=== PATIENT | female | born 1950 | race Caucasian/White ===

== ENCOUNTER → 2017-01-05 | Outpatient (CLI) | payer OTHER, MEDICARE | LOC: BHFA 09:15 | PROVIDERS: ATTEND Internal Medicine Cardiovascular Disease | DX: I34.0 Nonrheumatic mitral (valve) insufficiency (principal) ==

== ENCOUNTER → 2017-06-16 | Outpatient (CLI) | payer OTHER, MEDICARE | LOC: FIMAGING 09:28 | PROVIDERS: ATTEND Nurse Practitioner Adult Health | DX: M85.611 Other cyst of bone, right shoulder (principal); R91.1 Solitary pulmonary nodule ==

== ENCOUNTER → 2017-07-06 | Outpatient (CLI) | payer OTHER, MEDICARE | LOC: BHFA 08:30 | PROVIDERS: ATTEND Internal Medicine Cardiovascular Disease | DX: R07.9 Chest pain, unspecified (principal); E78.5 Hyperlipidemia, unspecified ==

== ENCOUNTER → 2017-10-17 | Outpatient (CLI) | payer OTHER, MEDICARE | LOC: FIMAGING 10:16 | PROVIDERS: ATTEND Obstetrics & Gynecology | DX: Z12.31 Encounter for screening mammogram for malignant neoplasm of breast (principal) | CPT/HCPCS: G0202 ==

== ENCOUNTER 2018-02-22 20:07 | Inpatient (IN) | payer OTHER, MEDICARE ==
[2018-02-22] MEDS ORDERED: NS 1,000 ML IV ONE (21:01)
--- NOTE | 2018-02-22 21:06 | EDPHY ---
H & P Time Seen by Provider: 02/22/18 20:43 HPI/ROS: CHIEF COMPLAINT: Abdominal pain HISTORY OF PRESENT ILLNESS: The patient is a 67-year-old female with a history of Crohn's disease. The patient states"I am having a Crohn's flare."She states she has a flare approximately once a year. She becomes distended has significant pain. She states his pinpoint and severe. It is mid abdomen. She reports that Dr. Castillo tells her that she should come into the emergency department to get evaluation. She typically requires a scan. The patient denies any diarrhea. No nausea or vomiting. No fevers or chills. REVIEW OF SYSTEMS: My complete review of systems is negative except as mentioned in the HPI. Past Medical/Surgical History: Includes Crohn's disease, kidney stone, sleep apnea Past surgical history: Includes bowel resection, tonsillectomy Social history: The patient does not smoke Smoking Status: Never smoked Physical Exam: Vitals noted. Afebrile GENERAL: Well-appearing, in no acute distress, alert. HEENT: Eyes normal to inspection, normal pharynx, no signs of dehydration. NECK: No thyromegaly, supple. RESPIRATORY: Clear to auscultation bilaterally, no rales, rhonchi or wheezing. CVS: Regular rate and rhythm, no rubs, murmurs, or gallops. ABDOMEN: Soft, mild diffuse tenderness to palpation with no rebound or guarding. Mild distention. BACK: Normal to inspection, no CVA tenderness. SKIN: Normal color, no rash, warm, dry. No pallor. EXTREMITIES: No pedal edema, no calf tenderness, no Homans sign or cords, no joint swelling. NEURO/PSYCH: Alert and oriented, normal mood and affect, normal motor sensory exam. Constitutional: Initial Vital Signs Temperature (C) 36.9 C 02/22/18 20:14 Heart Rate 77 02/22/18 20:14 Respiratory Rate 18 02/22/18 20:14 Blood Pressure 168/60 H 02/22/18 20:14 O2 Sat (%) 96 02/22/18 20:14 O2 Delivery Mode Room Air O2 (L/minute) 2 Allergies/Adverse Reactions: No Known Allergies Allergy (Verified 02/21/15 18:20) Home Medications: Medication Instructions Recorded Humira 40 02/22/18 Medical Decision Making - Diagnostics Imaging Results: Imaging Impressions Abdomen CT 02/22/18 21:03 Impression: 1. Severe acute segmental inflammatory enteritis of distal ileum. No discrete perforation or abscess. 2. Narrowing of the inflamed segment causes low-grade mechanical obstruction. 3. Sigmoid diverticulosis. Findings were communicated in person with Dr. GREG REYEZ at 02/22/2018 22 :27 ED Course/Re-evaluation: In the emergency department I discussed possible etiologies with the patient. I answered all her questions. IV was placed. Patient requests morphine. Morphine 4 mg IV and Zofran 4 mg IV were given for pain and nausea. The patient was given normal saline 1 L IV for hydration. Laboratory studies and CT scan were ordered. [place] [address]. The chemistry panel is unremarkable. LFTs and lipase are normal. Abdominal pelvis CT: Please refer the dictated report. The patient has a distal ileum enteritis. There is an ileus. I discussed the results with the patient. I answered all her questions. I discussed the case with the on-call surgeon, Dr. Navarro. I discussed the case with Dr. Gan. He will admit the patient for further care. Discussed case with Dr. Al Coffey. He recommended Solu-Medrol 125 mg IV now. He then recommended Solu-Medrol 30 mg IV Q 12 hr. I discussed this with Dr.De Lozada. Differential Diagnosis: My differential includes but is not limited to small-bowel obstruction, perforation, Crohn's flare, diverticulitis, diverticulosis, diverticular abscess , pancreatitis, cholecystitis, studies - Data Points Laboratory Results: Laboratory Results 02/22/18 20:50 02/22/18 20:50 02/22/18 02/22/18 20:50 20:50 WBC 14.83 10^3/uL H 10^3/uL (3.80-9.50) RBC 4.80 10^6/uL 10^6/uL (4.18-5.33) Hgb 15.7 g/dL g/dL (12.6-16.3) Hct 45.3 % % (38.0-47.0) MCV 94.4 fL fL (81.5-99.8) MCH 32.7 pg pg (27.9-34.1) MCHC 34.7 g/dL g/dL (32.4-36.7) RDW 11.9 % % (11.5-15.2) Plt Count 194 10^3/uL 10^3/uL (150-400) MPV 9.6 fL fL (8.7-11.7) Neut % (Auto) 73.2 % % (39.3-74.2) Lymph % (Auto) 18.1 % % (15.0-45.0) [place] % (Auto) 7.8 % % (4.5-13.0) Eos % (Auto) 0.3 % L % (0.6-7.6) Baso % (Auto) 0.2 % L % (0.3-1.7) Nucleat RBC Rel Count 0.0 % % (0.0-0.2) Absolute Neuts (auto) 10.86 10^3/uL H 10^3/uL (1.70-6.50) Absolute Lymphs (auto) 2.69 10^3/uL 10^3/uL (1.00-3.00) Absolute Monos (auto) 1.15 10^3/uL H 10^3/uL (0.30-0.80) Absolute Eos (auto) 0.04 10^3/uL 10^3/uL (0.03-0.40) Absolute Basos (auto) 0.03 10^3/uL 10^3/uL (0.02-0.10) Absolute Nucleated RBC 0.00 10^3/uL 10^3/uL (0-0.01) Immature Gran % 0.4 % % (0.0-1.1) Immature Gran # 0.06 10^3/uL 10^3/uL (0.00-0.10) Sodium 136 mEq/L mEq/L (135-145) Potassium 3.7 mEq/L mEq/L (3.5-5.2) Chloride 100 mEq/L mEq/L (97-110) Carbon Dioxide 25 mEq/l mEq/l (22-31) Anion Gap 11 mEq/L mEq/L (8-16) BUN 14 mg/dL mg/dL (7-23) Creatinine 0.7 mg/dL mg/dL (0.6-1.0) Estimated GFR > 60 Glucose 101 mg/dL H mg/dL (70-100) Calcium 9.4 mg/dL mg/dL (8.5-10.4) Total Bilirubin 1.2 mg/dL mg/dL (0.1-1.4) Conjugated Bilirubin 0.4 mg/dL mg/dL (0.0-0.5) Unconjugated Bilirubin 0.8 mg/dL mg/dL (0.0-1.1) AST 26 IU/L IU/L (14-46) ALT 44 IU/L IU/L (9-52) Alkaline Phosphatase 49 IU/L IU/L (38-126) Total Protein 7.2 g/dL g/dL (6.3-8.2) Albumin 4.3 g/dL g/dL (3.5-5.0) Lipase 146 IU/L IU/L (23-300) Medications Given: Discontinued Medications Sodium Chloride (Ns) 1,000 mls @ 0 mls/hr IV EDNOW ONE; Wide Open PRN Reason: Protocol Stop: 02/22/18 21:02 Last Admin: 02/22/18 21:08 Dose: 1,000 mls Morphine Sulfate (Morphine) 4 mg IVP EDNOW ONE Stop: 02/22/18 21:02 Last Admin: 02/22/18 21:07 Dose: 4 mg Departure - Departure Disposition: [facility] Inpatient Acute Clinical Impression: Ileus Abdominal pain Qualifiers: Abdominal location: generalized Qualified Code(s): R10.84 - Generalized abdominal pain Condition: Good Instructions: Acute Abdominal Pain (ED) Referrals: Kade Castillo MD [Medical Doctor] - 2-3 days without fail
[2018-02-22 21:17] LABS: PLATELET COUNT 194 10^3/uL (150-400)
[2018-02-22] MEDS ORDERED: IOPAMIDOL (ISOVUE-300) 100 ML BTL ONE (21:28)
[2018-02-22] MEDS ORDERED: NS 1,000 ML IV SCH (22:30)
[2018-02-22] MEDS ORDERED: ONDANSETRON DISINTEGRATING 4 MG TAB PO PRN (22:30)
[2018-02-22] MEDS ORDERED: ACETAMINOPHEN 325 MG TAB PO PRN (22:30)
[2018-02-22] MEDS ORDERED: ONDANSETRON 4 MG/2 ML VIAL IVP PRN (22:30)
[2018-02-22] MEDS ORDERED: methylPREDNISolone SOD SUCC 125 MG/2 ML VIAL IVP ONE (22:39)
--- NOTE | 2018-02-22 23:14 | PDGENHP ---
History and Physical - Chief Complaint Abdominal pain - History of Present Illness 67 yo F w/ Crohn's presents w/ abdominal pain. Patient has had lower abdominal pain for about 1 day. Pain developed after eating. She had two small BM's this morning but no BM or gas since; also no BRBPR. Pain is currently improved after morphine received in the ED. She is healthy otherwise and her only home mediction is Humira. Her Chron's is well controlled usually as her last hospitalization for a flare was over 10 years ago. She has no family hx of IBD. History Information - Allergies/Home Medication List Allergies/Adverse Reactions: No Known Allergies Allergy (Verified 02/21/15 18:20) Home Medications: Humira 40 02/22/18 [Last Taken Unknown] I have personally reviewed and updated: family history, medical history - Past Medical History Crohn's Disease - Surgical History Additional surgical history: Bowel surgery - Family History Additional family history: Denies family hx of IBD - Social History Smoking Status: Never smoked Review of Systems Review of Systems: ROS: 10pt was reviewed & negative except for what was stated in HPI & below Physical Exam Physical Exam: Temp Pulse Resp BP Pulse Ox 36.7 C 68 16 145/64 H 97 02/22/18 22:00 02/22/18 22:00 02/22/18 22:00 02/22/18 22:00 02/22/18 22:00 Constitutional: no apparent distress, not in pain Eyes: PERRL, EOMI Ears, Nose, Mouth, Throat: moist mucous membranes, no oral mucosal ulcers Cardiovascular: regular rate and rhythym, no murmur, rub, or gallop Respiratory: no respiratory distress, clear to auscultation Gastrointestinal: normoactive bowel sounds, tenderness (Lower abdomen), distension, No guarding, No rebound Skin: warm, normal color Musculoskeletal: full muscle strength, no muscle tenderness Neurologic: AAOx3, CN II-XII Intact Psychiatric: interacting appropriately, not anxious Lab Data & Imaging Review 02/22/18 20:50 02/22/18 20:50 WBC 14.83 10^3/uL (3.80-9.50) H 02/22/18 20:50 RBC 4.80 10^6/uL (4.18-5.33) 02/22/18 20:50 Hgb 15.7 g/dL (12.6-16.3) 02/22/18 20:50 Hct 45.3 % (38.0-47.0) 02/22/18 20:50 MCV 94.4 fL (81.5-99.8) 02/22/18 20:50 MCH 32.7 pg (27.9-34.1) 02/22/18 20:50 MCHC 34.7 g/dL (32.4-36.7) 02/22/18 20:50 RDW 11.9 % (11.5-15.2) 02/22/18 20:50 Plt Count 194 10^3/uL (150-400) 02/22/18 20:50 MPV 9.6 fL (8.7-11.7) 02/22/18 20:50 Neut % (Auto) 73.2 % (39.3-74.2) 02/22/18 20:50 Lymph % (Auto) 18.1 % (15.0-45.0) 02/22/18 20:50 [place] % (Auto) 7.8 % (4.5-13.0) 02/22/18 20:50 Eos % (Auto) 0.3 % (0.6-7.6) L 02/22/18 20:50 Baso % (Auto) 0.2 % (0.3-1.7) L 02/22/18 20:50 Nucleat RBC Rel Count 0.0 % (0.0-0.2) 02/22/18 20:50 Absolute Neuts (auto) 10.86 10^3/uL (1.70-6.50) H 02/22/18 20:50 Absolute Lymphs (auto) 2.69 10^3/uL (1.00-3.00) 02/22/18 20:50 Absolute Monos (auto) 1.15 10^3/uL (0.30-0.80) H 02/22/18 20:50 Absolute Eos (auto) 0.04 10^3/uL (0.03-0.40) 02/22/18 20:50 Absolute Basos (auto) 0.03 10^3/uL (0.02-0.10) 02/22/18 20:50 Absolute Nucleated RBC 0.00 10^3/uL (0-0.01) 02/22/18 20:50 Immature Gran % 0.4 % (0.0-1.1) 02/22/18 20:50 Immature Gran # 0.06 10^3/uL (0.00-0.10) 02/22/18 20:50 Sodium 136 mEq/L (135-145) 02/22/18 20:50 Potassium 3.7 mEq/L (3.5-5.2) 02/22/18 20:50 Chloride 100 mEq/L (97-110) 02/22/18 20:50 Carbon Dioxide 25 mEq/l (22-31) 02/22/18 20:50 Anion Gap 11 mEq/L (8-16) 02/22/18 20:50 BUN 14 mg/dL (7-23) 02/22/18 20:50 Creatinine 0.7 mg/dL (0.6-1.0) 02/22/18 20:50 Estimated GFR > 60 02/22/18 20:50 Glucose 101 mg/dL (70-100) H 02/22/18 20:50 Calcium 9.4 mg/dL (8.5-10.4) 02/22/18 20:50 Total Bilirubin 1.2 mg/dL (0.1-1.4) 02/22/18 20:50 Conjugated Bilirubin 0.4 mg/dL (0.0-0.5) 02/22/18 20:50 Unconjugated Bilirubin 0.8 mg/dL (0.0-1.1) 02/22/18 20:50 AST 26 IU/L (14-46) 02/22/18 20:50 ALT 44 IU/L (9-52) 02/22/18 20:50 Alkaline Phosphatase 49 IU/L (38-126) 02/22/18 20:50 Total Protein 7.2 g/dL (6.3-8.2) 02/22/18 20:50 Albumin 4.3 g/dL (3.5-5.0) 02/22/18 20:50 Lipase 146 IU/L (23-300) 02/22/18 20:50 Imaging Review: Imaging Impressions Abdomen CT 02/22/18 21:03 Impression: 1. Severe acute segmental inflammatory enteritis of distal ileum. No discrete perforation or abscess. 2. Narrowing of the inflamed segment causes low-grade mechanical obstruction. 3. Sigmoid diverticulosis. Findings were communicated in person with Dr. GREG REYEZ at 02/22/2018 22 :27 Assessment & Plan Assessment: 67 yo F presents w/ Crohn's flare. Plan: 1. Crohn's disease w/ acute flare - CT scan showing inflammation of distal ileum with stricture causing mild mechanical obstruction. - GI consulted, recommending IV steroids - NPO, mIVF, pain control Diet - NPO Code - Full Ppx - SCDs Dispo - Admit under observation status
[2018-02-23] MEDS: oxyCODONE IR 5 MG TAB PO PRN ×2 (00:24→01:14)
[2018-02-23 04:59] LABS: PLATELET COUNT 198 10^3/uL (150-400)
--- NOTE | 2018-02-23 06:15 | PDCONSULT ---
Rail Layer Note: #[id number] Surgical Consult Dictated S MD Melanie, FACS
--- NOTE | 2018-02-23 07:03 | GCON ---
[f rep st] CONSULTATION SURGICAL CONSULTATION DATE OF CONSULTATION: 02/23/2018 CHIEF COMPLAINT: Abdominal pain. HISTORY OF PRESENT ILLNESS: The patient is a 67-year-old female with a 35 year history of Crohn's disease, 1st diagnosed when she was and required emergency and resection of terminal ileum and portion of colon ( Doctors Corie and Emma). Subsequently, the patient had minimal progression of her disease over the years and has not required any additional bowel surgery. I repaired an abdominal wall hernia on her 15 years ago in combination with an abdominoplasty by . The patient has been on Humira for the past 8 months under the direction of Dr. Ezequiel Castillo and has had a known stricture near her anastomosis for at least the past 15 years, requiring intermittent hospitalization for partial obstruction. Her last Humira dose was 1 week ago. Before coming to the hospital yesterday, patient ate several coconut/nut concoctions that were quite fibrous and she feels this may have been the inciting factor in her most recent partial obstruction. The patient came to the emergency room, was seen by Dr. Somers and was admitted to the hospitalist service. She had 1 episode of emesis yesterday. PAST MEDICAL HISTORY: Significant for previous mentioned small bowel resection in combination with 1982, subsequent abdominal hernia repair and abdominoplasty in 1997. CURRENT MEDICATIONS: Include Humira (dose unknown, presumed 5 mg/kg every other week). ALLERGIES: She has no known drug allergies. HABITS: She does not smoke. Denies significant alcohol use. SOCIAL HISTORY: Patient is . She and her travel frequently. She exercises 5 days a week and eats a healthy diet. She has had a colonoscopy within the past year and colonoscopic dilatation of her stricture in the past. FAMILY HISTORY: Noncontributory. PHYSICAL EXAMINATION: VITAL SIGNS: Blood pressure 141/69, heart rate is 68, respiratory rate 16, O2 saturation is 95% on 2 L, temperature is 36.9. GENERAL : Patient is a pleasant, articulate woman appearing younger than her stated age. HEENT EXAM: No scleral icterus. No adenopathy. ABDOMEN: Soft, protuberant, tympanitic with hypoactive bowel sounds. There is a well-healed low abdominal incision transversely oriented without palpable hernias. There is no palpable mass, but there is fullness in the right lower quadrant. She has diffuse mild tenderness without guarding, rebound. CT scan shows a narrowing in the distal small bowel with proximal fecalization. Moderate amount of stool in the colon. No free air. No significant varghese- intestinal inflammatory change or fluid. There does appear to be edema in the wall of the bowel at the level of the stricture. LABORATORY STUDIES: WBC was 14.8 on admission, is 13.2 this morning. Hemoglobin 16, hematocrit 46.2, platelets 198. Sodium was 139, potassium 4.3, chloride 104, bicarb 26, BUN 12, creatinine 0.7, glucose 140. IMPRESSION: 1. 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 2. History of abdominal wall hernia repaired with mesh in combination with abdominoplasty. RECOMMENDATIONS: Discussed the findings with the patient and recommended conservative management and start her on a clear liquid diet, advising her to avoid food, carbonated beverages, and progressed to a low residue diet. If the patient continues to have symptoms of her stricture, strictureplasty may be indicated. I would recommend holding Humira for 2-4 weeks prior to surgery ideally for optimal risk reduction perioperatively. /[id number]/MODL MTDD
[2018-02-23] MEDS ORDERED: D5W 1/2 NS W/ 20 KCl/L 1,000 ML IV SCH (08:45)
--- NOTE | 2018-02-23 08:47 | SOAPPROG ---
GIRMA Progress Note Assessment/Plan: Assessment/Plan: Chart reviewed, pt. not seen yet, formal note to follow. Crohn's ileitis flare , with secondary obstructive symptoms. She does have a past history of an anastomotic stricture, dilated in 2017, but with the CT findings, doubt playing a role. - she received a 125 mg bolus of solumedrol IVP x 1; will start 30 mg q12 - clears Thanks! 02/23/18 08:44 Objective: Vital Signs Temp Pulse Resp BP Pulse Ox 36.6 C 68 18 123/82 H 94 02/23/18 07:18 02/23/18 07:18 02/23/18 07:18 02/23/18 07:18 02/23/18 07:18 Laboratory Results 02/23/18 04:15 02/23/18 04:15 02/22/18 02/23/18 02/24/18 05:59 05:59 05:59 Intake Total 1000 Balance 1000 ICD10 Worksheet Patient Problems: Problems Problem Status Onset Abdominal pain Acute Ileus Acute
[2018-02-23] MEDS ORDERED: CARBOXYMETHYLCELLULOSE 1% 0.4 ML DROPERETTE EACHEYE PRN (09:21)
[2018-02-23] MEDS: methylPREDNISolone SOD SUCC 40 MG/ML VIAL IVP SCH ×2 (09:34→21:20)
[2018-02-23] MEDS: CHOLECALCIFEROL VIT D3 1,000 UNITS TAB PO SCH (11:43)
[2018-02-23] MEDS: CYANO/VITAMIN B12 1000 MCG TAB PO SCH (11:44)
[2018-02-23] MEDS: MULTIVITAMINS 1 EACH TAB PO SCH (11:44)
[2018-02-23] MEDS: OMEGA-3 FATTY ACIDS 1,000 MG CAP PO SCH (11:44)
--- NOTE | 2018-02-23 12:34 | GCON ---
[f rep st] CONSULTATION DATE OF CONSULTATION: 02/23/2018 REASON FOR CONSULTATION: I was kindly requested to see Lucila by Dr. Vidal Gan in consultation for a chief complaint of obstructive symptoms. HISTORY OF PRESENT ILLNESS: She is a 67-year-old white female with a long history of Crohn's ileitis. Until recently, she has been doing quite well. Yesterday, prior to a hike, she ate a fair amount of an organic nut cluster product. She developed generalized abdominal pain with distention, nausea, and inability to pass gas and presented to the hospital. She is status post ileal resection for her Crohn's in the past, including some of her cecum, and has an ileocolonic anastomosis. In the past, she was on azathioprine 150 mg daily. She believes this helped, but it was stopped after she had some endoscopic disease present. While on the above dose, she did not have a 6-thioguanine level. A past TPMT phenotype was normal. She was switched to Humira 40 mg every other week. With this, she states she was doing quite well until the above. She is followed by my partner, Dr. Kade Castillo, and was last seen in the office in November of this year. In June of last year, he performed a colonoscopy, where she received 100 mcg of fentanyl and 6 mg of Versed. She did have what was described as a moderate stricture at her ileocolonic anastomosis, which was dilated with a 15 mm balloon. There was some mild ileal inflammation. PAST MEDICAL HISTORY: 1. As above. 2. Past pulmonary nodules, evaluated by [facility]. 3. Abdominal wall hernia repair with mesh. 4. Past imaging, which showed asymptomatic gallstones. 5. Otherwise noncontributory. ALLERGIES: No known drug allergies. OUTPATIENT MEDICATIONS: The above and B12. INPATIENT MEDICATIONS: IV fluids and 1 dose of Solu-Medrol 125 mg IV push when in the emergency department. SOCIAL HISTORY: She is and her 's name is Yasmany. FAMILY HISTORY: Negative for similar abdominal symptoms. REVIEW OF SYSTEMS: Positive pertinent review of systems as per my HPI. Otherwise, a complete review of systems is negative. PHYSICAL EXAM: CONSTITUTIONAL: Nontoxic-appearing and pleasant woman. SKIN: Warm and dry. EYES: Pupils are equal, round, and reactive to light and accommodation. ENT: Oropharynx is without masses and moist mucosa. CARDIOVASCULAR: Normal S2 and normal PMI. RESPIRATORY: Lungs are clear to auscultation and percussion anteriorly. GASTROINTESTINAL: Abdomen is nontender. It is moderately distended, tympanitic, and with inactive bowel sounds. NEUROLOGIC: Grossly nonfocal. Cranial nerves are grossly intact. PSYCHIATRIC: Orientation and insight are appropriate. MUSCULOSKELETAL: Strength is grossly normal throughout with normal station. LABORATORY DATA: White count is 13.2000 with a normal hematocrit. Normal CMP. Normal lipase. Calprotectin level in January was normal. CRP was elevated in 2007 and a January of 2018 CRP was normal. TB testing is negative. IMAGING: Abdominal and pelvic CT scan with IV contrast shows a 5 cm stretch of ileum that appears inflamed and strictured with some upstream dilation. ASSESSMENT: 1. Small bowel obstructive symptoms, suspect due to the Crohn's stricture found on imaging. In turn, I suspect that this is mostly inflammatory, based on its appearance. In this regard, it should hopefully resolve with medical therapy. After 1 dose of Solu-Medrol, she is already a little better, in terms of no further pain. Another possibility could be a return of her more "cold" ileocolonic anastomotic stricture, causing more of a mechanical obstruction. Based on the CT scan, however, this is somewhat less likely. 2. Crohn's ileitis. See above. PLAN: 1. Solu-Medrol 30 mg IV piggyback every 12 hours. 2. Continue IV fluids. 3. Gentle clears. 4. I suspect she will improve with the above; however, if she continues to show obstructive symptoms, despite IV Solu-Medrol, we might then at some point have to pursue colonoscopy with potential dilation of her ileocolonic anastomosis. 5. Upon discharge, she might require her Humira increased to 40 mg weekly; as per her outpatient leaf coverer, Dr. Castillo. Thank you for allowing me to help in the management of this patient. /[id number]/MODL MTDD
--- NOTE | 2018-02-23 14:17 | ASMTCMCOM ---
CM Note CM Note Notes: Spoke w/RN, pt lives at home with her , pt will dc home when medically stable CM available for any changes. DC Plan: Independent Date Signed: 02/23/2018 02:17 PM Electronically Signed By:Antonette Patel RN
--- NOTE | 2018-02-23 14:51 | HOSPPROG ---
Hospitalist Progress Note Assessment/Plan: 67 yo F w crohns flare, terminal ileitis crohn's: continue solumedrol no peritoneal signs pseudo obstruction: 2/2 ileal inflammation no flatus not vomiting pain: well controlled proph: ambulatory dispo: change to inpt Subjective: case d/w dr meehan. no flatus Objective: Vital Signs Temp Pulse Resp BP Pulse Ox 36.9 C 38 L 18 146/71 H 92 02/23/18 11:19 02/23/18 11:19 02/23/18 11:19 02/23/18 11:19 02/23/18 11:19 Laboratory Results 02/23/18 04:15 02/23/18 04:15 02/22/18 02/23/18 02/24/18 05:59 05:59 05:59 Intake Total 1000 Balance 1000 - Physical Exam Constitutional: no apparent distress, appears nourished Eyes: PERRL, anicteric sclera Ears, Nose, Mouth, Throat: moist mucous membranes, hearing normal Cardiovascular: regular rate and rhythym, no murmur, rub, or gallop Respiratory: no respiratory distress, no rales or rhonchi Gastrointestinal: other (hypoactive but present bowel sounds. no rebound) Genitourinary: no bladder fullness, No hussein in urethra Skin: warm, normal color Musculoskeletal: full muscle strength Neurologic: AAOx3 Psychiatric: interacting appropriately ICD10 Worksheet Patient Problems: Problems Problem Status Onset Abdominal pain Acute Ileus Acute
--- NOTE | 2018-02-23 17:27 | PDMN ---
Medical Necessity Medical necessity: Change to IP, as of 02/23/18, per MD; los >2 mn for ongoing management of Crohn's disease w/acute flare & pseudo obstruction secondary to ileal inflammation; admit for further monitoring, GI consult, IV steroids & IVFs ; per progress note & order 02/23/18
[2018-02-24 08:56] VITALS: BP 138/50
[2018-02-24] MEDS ORDERED: Herbals/Supplements -Info Only PO SCH (09:00)
[2018-02-24] MEDS: methylPREDNISolone SOD SUCC 40 MG/ML VIAL IVP SCH (09:03)
[2018-02-24] MEDS: CHOLECALCIFEROL VIT D3 1,000 UNITS TAB PO SCH (12:20)
[2018-02-24] MEDS: CYANO/VITAMIN B12 1000 MCG TAB PO SCH (12:20)
[2018-02-24] MEDS: MULTIVITAMINS 1 EACH TAB PO SCH (12:21)
[2018-02-24] MEDS: OMEGA-3 FATTY ACIDS 1,000 MG CAP PO SCH (12:21)
--- NOTE | 2018-02-24 12:43 | SOAPPROG ---
GIRMA Progress Note Assessment/Plan: Assessment/Plan: Partial SBO, almost certainly due to active inflammatory Crohn's ileal stricture. Now, after IV solumedrol, doing well. Doubt at this point due to a return of her ileocolonic anastomotic stricture, especially with her response to steroids. - agree with d/c home - would recommend prednisone 40 mg daily for a week, then 35 mg daily for a week , then 30 mg daily for a week, and so on, until none - I will arrange f/u with her outpt [facility] doc, Dr. Castillo. She eventually might require her humira increased to weekly. Thanks! 02/24/18 12:46 Subjective: cc: partial SBO Doing better. No significant abdominal pain. Less distension; able to pass gas. No rigors, sweats. Objective: Vital Signs Temp Pulse Resp BP Pulse Ox 36.6 C 67 18 138/50 H 90 L 02/24/18 08:00 02/24/18 08:00 02/24/18 08:00 02/24/18 08:00 02/24/18 08:00 Laboratory Results 02/23/18 04:15 02/23/18 04:15 02/23/18 02/24/18 02/25/18 05:59 05:59 05:59 Intake Total 1000 800 Balance 1000 800 Physical Exam - Physical Exam General Appearance: WD/WN, alert, no apparent distress EENT: PERRL/EOMI, normal ENT inspection, pharynx normal, TMs normal Neck: non-tender, full range of motion, supple, normal inspection Respiratory: chest non-tender, lungs clear, normal breath sounds Cardiac/Chest: normal peripheral pulses, regular rate, rhythm Peripheral Pulses: 2+: carotid (R), carotid (L), femoral (R), femoral (L), dorsalis-pedis (R), dorsalis-pedis (L) Abdomen: normal bowel sounds, non-tender, soft Pelvic Exam: deferred Rectal: deferred Back: Normal inspection Skin: normal color, warm/dry Lymphatic: no adenopathy Extremities: normal range of motion, non-tender, normal inspection, normal capillary refill Neuro/Psych: no motor/sensory deficits, alert, normal mood/affect, oriented x 3 ICD10 Worksheet Patient Problems: Problems Problem Status Onset Abdominal pain Acute Ileus Acute
--- NOTE | 2018-02-24 16:03 | GDS ---
[f rep st] DISCHARGE SUMMARY DISCHARGE DIAGNOSES: 1. Acute Crohn flare. 2. Acute ileus/bowel obstruction secondary to Crohn. HISTORY OF PRESENT ILLNESS: A 67-year-old female with a history of Crohn, status post resection over 30 years ago, who presents with complaints of abdominal pain. For details of patient's initial pres entation, please see the history and physical dated 02/22/2018. CONSULTATIVE SERVICES: 1. General Surgery, Dr. Navarro. 2. Gastroenterology, Dr. Coffey. PROCEDURES: On 02/22/2018, patient had a CT of the abdomen that showed severe acute segmental inflam matory enteritis of the distal ileum and findings consistent with low-grade mechanical obstruction. HOSPITAL COURSE BY ISSUE: Acute Crohn flare. The patient was initiated on high-dose IV steroids and monitored on the inpatient setting with fluid resuscitation and p.r.n. pain medications. The patien t had marked improvement the second 24 hours of her hospital stay. On the morning of disposition, sarah hagan is taking p.o. without nausea, vomiting, and is passing both gas and stools without complication. The patient will be prescribed a long prednisone taper with instructions to continue her Humira at he r current dosing and follow in the outpatient setting with her preparer, Dr. Castillo. MEDICATIONS AT THE TIME OF TRANSFER: Please reference the med rec printed on 02/24/2018. FOLLOWUP APPOINTMENTS: Include with Dr. Castillo in the next 1-2 weeks time. PENDING STUDIES: At the time of this dictation are none. TIME SPENT: I spent greater than 30 minutes in the planning and coordination of this discharge. /[id number]/MODL
== END 2018-02-24 10:12 | disposition home or self-care (01) | DRG 386 ==
LOC: OBSVTOIN 22:31 → F3E 23:59
PROVIDERS: ADMIT Student in an Organized Health Care Education/Training Program; ATTEND Student in an Organized Health Care Education/Training Program
DX: K50.012 Crohn's disease of small intestine with intestinal obstruction (principal); K56.7 Ileus, unspecified; G47.30 Sleep apnea, unspecified
CPT/HCPCS: 96374; G0378; J2270; J2920; J2930; Q9967

== ENCOUNTER → 2018-08-21 | Outpatient (CLI) | payer OTHER, MEDICARE | LOC: BHFA 09:15 | PROVIDERS: ATTEND Internal Medicine Cardiovascular Disease | DX: I35.1 Nonrheumatic aortic (valve) insufficiency (principal); I34.0 Nonrheumatic mitral (valve) insufficiency; R06.02 Shortness of breath ==

== ENCOUNTER → 2018-11-13 | Outpatient (CLI) | payer OTHER, MEDICARE | LOC: FIMAGING 13:53 | PROVIDERS: ATTEND Internal Medicine | DX: Z12.31 Encounter for screening mammogram for malignant neoplasm of breast (principal); Z13.820 Encounter for screening for osteoporosis; M85.89 Other specified disorders of bone density and structure, multiple sites; Z78.0 Asymptomatic menopausal state ==